=== PATIENT | male | born 1970 | race American Indian/Alaskan Native ===

== ENCOUNTER 2020-03-13 10:52 | Outpatient (CLI) | payer BC ==
--- NOTE | 2020-03-13 13:24 | Ultrasound Report ---
ULTRASOUND RENAL INDICATION: CREATININE ELEVATION. COMPARISON: No relevant prior imaging study available. FINDINGS: RIGHT KIDNEY: Size: 10.4 cm. Echogenicity: Normal. Cortical thickness: 1.2 cm. Stones: None. Hydronephrosis: None. Cyst or mass: None. LEFT KIDNEY: Size: 10.8 cm. Echogenicity: Normal. Cortical thickness: 0.9 cm. Stones: None. Hydronephrosis: None. Cyst or mass: 9 mm cyst in the mid left kidney. Urinary Bladder: No significant abnormality. Free Fluid: None. Additional Findings: None. IMPRESSION 1. No acute sonographic abnormality of the kidneys. 2. Tiny left renal cyst. Signer Name: Tre Kennedy MD Signed: 03/13/2020 1:20 PM Workstation Name: [id number]
== END 2020-03-13 10:53 | disposition home or self-care (01) ==
LOC: SPVWC 10:52
PROVIDERS: ATTEND Internal Medicine
DX: N28.1 Cyst of kidney, acquired (principal); R79.89 Other specified abnormal findings of blood chemistry
CPT/HCPCS: 76770